=== PATIENT | female | born 1985 | race Caucasian/White ===

== ENCOUNTER → 2020-11-09 | Outpatient (CLI) | payer BC, OTHER ==
[~2020-11-09] VITALS: Ht 177.8 cm; Wt 93.0 kg
[~2020-11-09] MED LIST: BACLOFEN 10MG T10 MG PO; FLUOXETINE HCL40 MG PO; KLONOPIN1 MG PO
[2020-11-09 08:22] VITALS: BP 119/77
--- NOTE | 2020-11-09 08:34 | NUR ---
Pain Clinic Assessment: 1. History of Osteoarthritis: Not Applicable History of Rheumatoid Arthritis: Not Applicable 2. Height: 5 ft. 10 in. 177.8 cm. Weight: 205.0 lb. oz. 92.988 kg. Patient's BMI: 29.4 3. Vital Signs: BP: 119/77 Pulse: 81 Resp: 16 Temp: 02 Sat: 100 ECG Mon: 4. Pain Intensity: 7 5. Fall Risk: Dizziness: N Needs help standing or walking: N Fallen in the last 3 months: N Fall risk comments: 6. Patient on Blood Thinner: None 7. History of Hypertension: N 8. Opioid Therapy greater than 6 weeks: Opiate Contract Signed: 9. Risk Assessment Tool Provided: low-2 10. Functional Assessment Tool: 54/70 11. Recreational Drug Use: Never Drug Type: Tobacco Use: Former Smoker Tobacco Type: Amount or Packs/day: How Many Years: Alcohol Use: Yes Frequency: Monthly Quant: 3
--- NOTE | 2020-11-16 09:33 | HPC ---
[facility] [address] [address] PAIN MANAGEMENT CONSULTATION Name: KRISTEN SALAZAR [id number] Admission: 11/09/20 Attend Phys: Sabino Kramer DO Discharge: Date of : 81 Report #: [id number] THIS REPORT FOR: cc: Gonzalo Sorensen,Sabino Nelson DO ~ DOC #: [id number] cc: DO Sabino Goodwin DO DATE OF SERVICE: 11/09/2020 REFERRING PHYSICIAN: Dr. Gonzalo Sorensen. CHIEF COMPLAINT: Right neck pain and head pain. HISTORY OF PRESENT ILLNESS: As you know, the patient is a very pleasant 35-year-old female who has been evaluated for migraine headaches involving the right side of her neck and head. She has been cleared from Neurology from a standpoint of migraine headaches. She was advised her symptoms appeared to be related to cervicogenic issues. They tried various treatment options throughout her treatment for suspected migraine headaches. She has undergone osteopathic manipulation with improvement in symptoms, but unfortunately transiently. She sought evaluation through Neurology who has ultimately advised the patient, her symptoms are not migrainous in origin and that the symptoms appear to be related more to the cervical area. She is able to localize pain directly over the right upper cervical area. She states that movement in that area causes exacerbation of symptoms. She has trialled ixod-exw-ycbclrb medications without benefit. She has had symptoms present since 2018. She indicates that increasing heat, anxiety, any kind of stress or exercise tends to increase pain. She only has symptoms on the right side. She has been referred to our service to discuss interventional treatment options to address cervicogenic headache. The patient indicates her pain today as constant. She describes the pain as aching and throbbing. She places current pain score 7/10. Daily average at 8/10. Worst pain has been is 10/10. The patient states pain is exacerbated with any increasing heat, exercise, stress or movement, improves with recent Medrol Dosepak. She has been referred to our service to discuss interventional treatment options. PAST MEDICAL HISTORY: 1. Depression. 2. Frequent headaches. PAST SURGICAL HISTORY: None. SOCIAL HISTORY: The patient denies tobacco, IV or illicit drug use. Admits to [address] [address] PAIN MANAGEMENT CONSULTATION Name: KRISTEN SALAZAR Room #: REG [facility] Nelda#: [id number] Admission: 11/09/20 Attend Phys: Sabino Kramer DO Discharge: Date of : 81 Report #: [id number] occasional alcohol beverage. 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 She is not receiving workmen's compensation nor is trying to obtain disability benefits. She is not in litigation in regards to her pain. She is unaccompanied at today's visit. REVIEW OF SYSTEMS: Positive for right headaches, wearing corrective eyewear, nocturia, nervousness, and depression. All other review of systems negative per 12-point review of systems other than those listed in history of present illness. Pain impact score 54/70. Severe interference of daily activities secondary to pain. ALLERGIES: No reported drug allergies. CURRENT MEDICATIONS: Fluoxetine 40 mg once a day, clonazepam 1 mg b.i.d. IMAGING: There is no imaging of the cervical spine. PHYSICAL EXAMINATION: VITAL SIGNS: Blood pressure 119/77, pulse 81, respiratory rate 16 and unlabored. The patient 100% on room air. Height 5 feet 10 inches tall, weight 205 pounds, BMI calculated at 29.4. GENERAL: Well-developed, well-nourished, well-hydrated, 35-year-old female appearing stated age. Current pain score is rated at 7/10. HEENT: Normocephalic, atraumatic. Pupils equal, round and responsive. The patient's speech is fluent. She is wearing a mask in compliance with COVID-19 regulations. LUNGS: Clear. No wheezes, rhonchi or rales. CARDIOVASCULAR: Regular. No appreciable gallop, no rub. ABDOMEN: Soft, nontender, nondistended. Normoactive bowel sounds. EXTREMITIES: Show no clubbing, no cyanosis and no edema. MUSCULOSKELETAL: Upper extremity strength is equal and symmetrical 5/5, intact to light touch from C5 through T1 dermatomes. Passive cervical range of motion is normal. There is palpatory tenderness over the upper cervical area and the right suboccipital region. Deep pressure in this area causes intensification of pain with radiation over what appears to be the right greater occipital distribution. There is no tenderness to the occipital nerve over the occipital ridge. No effects are noted on the lesser occipital nerve to the right. Cervical provocation testing does cause intensification of pain. There is no crepitus with movement. There is no spinous process tenderness in the cervical region. ASSESSMENT: 1. Right greater occipital neuralgia. 2. C2-C3 intra-articular facet arthropathy. [facility] [address] [place] [address] PAIN MANAGEMENT CONSULTATION Name: KRISTEN SALAZAR Room #: REG [facility] [place]#: [id number] Admission: 11/09/20 Attend Phys: Sabino Kramer, DO Discharge: Date of : 81 Report #: [id number] 3. Third occipital neuralgia. 4. Cervicogenic headache. 5. Chronic intractable pain. PLAN: Based on today's physical exam and history, the patient has provided, the description the patient uses in regards to pain as well as location of symptoms, it would appear her symptoms of head pain is related to a cervicogenic source. It does appear that the symptoms she is experiencing are fairly classic for a tension-type headache. Symptoms radiate from the upper cervical area, radiate over the occiput on the right and along the distribution of the greater occipital nerve. There are no symptoms along the lesser occipital nerve based on her report and evaluation today. We discussed with the patient her response to medication management in the past. It does appear that the Medrol Dosepak worked very well, indicating that the symptoms that she is experiencing are more inflammatory in their presentation correlating to the area of the upper cervical region ____ sensation to the upper area of the scalp on the right. We discussed with the patient the treatment options, we have to address this issue. The following was discussed with the patient today: 1. We discussed physical therapy, stretching exercises and traction techniques as a treatment course. The patient states she has done some traction in the past, but this was only manual traction, was not with mechanical traction techniques, which I think is more controlled and more predictive in its efficacy. We discussed medication management utilizing a nonsteroidal anti-inflammatory on a consistent basis along with possible neuropathic medications such as amitriptyline, nortriptyline, Cymbalta, or Lyrica to address the neuropathic component of the patient's symptoms. We discussed C2-C3 intra-articular facet injections and third occipital nerve blocks. We also discussed radiofrequency lesioning of the third occipital nerve area with pulse frequency ablation. We also discussed surgical options with the patient. After reviewing risks and benefits of all proposed treatment options, the patient chose to undergo C2-C3 intra-articular facet injection and third occipital nerve block. 2. The patient was advised due to third alliance party payer restrictions, authorization would have to be obtained to undergo C2-C3 intra-articular facet injection and a third occipital nerve block. We will begin this authorization process immediately to address her cervicogenic headache. We are hopeful that this authorization can be completed quickly and we can move forward with the injection. We will keep the patient apprised of our progress. 3. The patient was provided a prescription of baclofen 10 mg dose. She is to take 1 tab p.o. at bedtime, take one tab b.i.d. to t.i.d. p.r.n. for muscle spasms. I have advised the patient to take one pill at night about 2 hours before bedtime. If she is not experiencing significant side effects such as sleepiness, disorientation, and confusion, she can utilize the medication more consistently. She is currently out of school and is spending most of her time at home. I am hopeful the baclofen will give her good analgesic benefit in the area. She was given a prescription of #90 tablets with refills if necessary. [address] [address] PAIN MANAGEMENT CONSULTATION Name: KRISTEN SALAZAR Room #: REG [facility] Lutz#: [id number] Admission: 11/09/20 Attend Phys: Sabino Kramer DO Discharge: Date of : 81 Report #: [id number] She will contact our clinic if she has any questions or concerns in regards to medication. 4. The patient was provided a prescription of methylprednisolone 8 mg dose. I have given the patient #15 tablets. This will only be used if the patient's symptoms are exacerbated with activity. I have advised the patient to utilize this medication only while she is on vacation as she is taking a trip to [place] for a 14-day trip that she has been looking towards to for an extended period of time. I provided this medication with the understanding that she would only use this as a rescue, if symptoms do not improve with our interventional treatment proposed. This will allow the patient to be able to go to [place], enjoy her trip as she does note improvement in symptoms with methylprednisolone, but we would have to limit future exposure. The patient is agreeable with that plan. 5. We did discuss with the patient the possibility of utilizing Botox injections in the upper cervical area. There has been noted improvement in symptoms with Botox injections, especially in regards to the cervicogenic portion of the patient's head pain. If she wishes to look into this further, we will provide the patient with referrals to undergo Botox injections. This may be done by Dr. Farrar, her neurologist or she may need referral to Dr. Dong. We will discuss this at followup visit. 6. We will keep you apprised of her response to treatment to address her third occipital neuralgia, her right greater occipital neuralgia, and cervicogenic headaches. This is addressed with C2-C3 intra-articular facet injection and third occipital nerve block. We will keep you apprised of their response, once we have a chance to undergo that procedure. 7. We wish to thank Dr. Gonzalo Sorensen for the referral of this patient to our clinic. We will keep you apprised of response to treatment. Again, we wish to thank you for the opportunity to see her in consultation. DO HAILY Turner/CHRISTIANA/TANIA <ELECTRONICALLY SIGNED> By: Sabino Kramer DO 11/16/20 0933 [id number] Sabino Kramer DO /nt
== END ==
LOC: PAIN 06:56
PROVIDERS: ATTEND Anesthesiology Pain Medicine
DX: M54.81 Occipital neuralgia (principal); R51.9 Headache, unspecified; G89.4 Chronic pain syndrome; Z79.891 Long term (current) use of opiate analgesic; Z79.899 Other long term (current) drug therapy